=== PATIENT | male | born 1940 | race Caucasian/White ===

== ENCOUNTER 2016-12-24 18:13 | Inpatient (IN) | payer OTHER ==
[~2016-12-24] VITALS: Ht 177.8 cm; Wt 92.0 kg
[~2016-12-24 18:13] MED LIST: ALLOPURINOL100 MG PO; AMARYL4 MG PO; Aggrenox PO; Aleve PO; Aspirin E.C. PO; CARVEDILOL6.25 MG PO; CIPRO500 MG PO; COATED ASPIRIN325 MG PO; CYANOCOBALAM1000 MCG PO; Coreg PO; FEXOFENADINE H180 M1 PO; FLOMAX0.4 MG PO; FLUDROCORTISON0.1 M1 PO; FUROSEMIDE20 MG PO; HYDROCODON-ACE1 EAC9 PO; KDUR; LASIX; LISINOPRIL10 MG PO; LORCET 10-6501 EACH PO; LOVAZA1 GM PO; METFORMIN HCL1000 MG PO; MIRALAX17 GM PO; MOTRIN600 MG PO; MULTIVITAMIN1 EAC2 PO; NEURONTIN800 MG PO; NEXIUM40 MG PO; PRADAXA150 MG PO; PRILOSEC40 MG PO; SIMVASTATIN40 M1 PO; SINGULAIR10 MG PO; TRADJENTA5 MG PO; TRAZODONE HCL50 MG PO; ZESTRIL,PRINIVI10 MG PO; celeXA PO
[2016-12-24 19:03] LABS: EOSINOPHIL (%) 1.1 % (0-5); EOSINOPHIL COUNT 0.1 K/uL (0-0.3); HEMATOCRIT 39.8 % (38.0-50.0); IMMATURE GRANULOCYTE (%) 0.8 % (0.0-0.7); IMMATURE GRANULOCYTE COUNT 0.1 K/uL; INSTRUMENT ABS NEUTROPHIL CT 8.6 K/uL; LYMPHOCYTE COUNT 1.7 K/uL (1.0-2.8); MCH 30.8 PG (29.0-34.0); MCHC 33.7 G/DL (30.0-36.0); MCV 91.5 FL (86-99); MEAN PLAT.VOLUME 10.6 uM^3 (9.0-12.4); MONOCYTE (%) 10.7 % (3-12); MONOCYTE COUNT 1.3 K/uL (0-0.8); NEUTROPHIL (%) 72.7 % (45-76); NEUTROPHIL COUNT 8.6 K/uL (1.8-6.4); PLATELET COUNT 152 K/uL (156-360); RBC DIS.WIDTH-CV 13.2 % (11.8-14.6); RBC DIS.WIDTH-SD 43.7 % (39-53); RED BLOOD COUNT 4.35 M/uL (4.00-5.50); WHITE BLOOD COUNT 11.8 K/uL (4.1-10.2)
[2016-12-24 19:08] LABS: INTER. NORMALIZED RATIO 1.2; PROTHROMBIN TIME 14.1 SEC (10.2-12.9)
[2016-12-24 19:11] LABS: PTT 41.1 SEC (25-37)
[2016-12-24 19:15] LABS: CHLORIDE 106 mEq/L (99-109); POTASSIUM 4.3 mEq/L (3.7-5.4); SODIUM 142 mEq/L (136-147)
[2016-12-24 19:17] LABS: GLUCOSE 187 mg/dL (70-99)
[2016-12-24 19:18] LABS: ANION GAP 10 MEQ/L (2-14)
[2016-12-24 19:21] LABS: GFR ESTIMATE (CALCULATED) 53 mL/min/; UREA NITROGEN (BUN) 25 mg/dL (9-23)
[2016-12-24 19:24] LABS: TROP-I INTERPRETATION NEGATIVE; TROPONIN-I 0.17 ng/mL (0.0-0.30)
[2016-12-24 22:56] LABS: Estimated Average Glucose 235 mg/dL (70-123)
[2016-12-24 22:58] LABS: HEMOGLOBIN A1c (GLYCOHEMOGLOB) 9.8 % HGB (Below 5.7)
[2016-12-24 23:34] VITALS: BP 91/53
[2016-12-25] VITALS (7 sets, daily range): BP systolic 116–177; BP diastolic 53–80
[2016-12-25 03:03] LABS: HEMATOCRIT 35.2 % (38.0-50.0); MCH 31.2 PG (29.0-34.0); MCHC 33.8 G/DL (30.0-36.0); MCV 92.4 FL (86-99); MEAN PLAT.VOLUME 10.7 uM^3 (9.0-12.4); PLATELET COUNT 125 K/uL (156-360); RBC DIS.WIDTH-CV 13.6 % (11.8-14.6); RBC DIS.WIDTH-SD 45.7 % (39-53); RED BLOOD COUNT 3.81 M/uL (4.00-5.50); WHITE BLOOD COUNT 7.7 K/uL (4.1-10.2)
[2016-12-25 03:14] LABS: CHLORIDE 109 mEq/L (99-109); POTASSIUM 3.9 mEq/L (3.7-5.4); SODIUM 140 mEq/L (136-147)
[2016-12-25 03:17] LABS: GLUCOSE 186 mg/dL (70-99)
[2016-12-25 03:18] LABS: ANION GAP 9 MEQ/L (2-14)
[2016-12-25 03:19] LABS: TOTAL BILIRUBIN 0.6 mg/dL (0.0-1.0)
[2016-12-25 03:20] LABS: ALKALINE PHOSPHATASE 51 IU/L (3-129); GFR ESTIMATE (CALCULATED) > 59 mL/min/
[2016-12-25 03:21] LABS: UREA NITROGEN (BUN) 21 mg/dL (9-23)
[2016-12-25 03:25] LABS: TROP-I INTERPRETATION POSITIVE
[2016-12-25 03:27] LABS: TROPONIN-I 1.05 ng/mL (0.0-0.30)
[2016-12-25 07:24] LABS: POINT-OF-CARE METER ID UU13113698; POINT-OF-CARE USER ID NUTSLF44
[2016-12-25 11:05] LABS: TROP-I INTERPRETATION POSITIVE; TROPONIN-I 0.62 ng/mL (0.0-0.30)
[2016-12-25 11:34] LABS: MAGNESIUM 1.4 mg/dL (1.3-2.7)
[2016-12-25 11:45] LABS: POINT-OF-CARE METER ID UU13113698; POINT-OF-CARE USER ID NUTSLF44
[2016-12-25 12:21] LABS: MAGNESIUM 1.4 mg/dl (1.3-2.7)
[2016-12-25] MEDS ORDERED: SIMVASTATIN40 MG PO (13:52)
[2016-12-25] MEDS ORDERED: GABAPENTIN800 MG PO (13:52)
[2016-12-25] MEDS ORDERED: ALLOPURINOL100 MG PO (13:52)
[2016-12-25] MEDS ORDERED: GLIMEPIRIDE4 MG PO (13:52)
[2016-12-25] MEDS ORDERED: SINGULAIR10 MG PO (13:53)
[2016-12-25] MEDS ORDERED: LO-DOSE ASPIRIN81 M1 PO (13:53)
[2016-12-25] MEDS ORDERED: CENTRUM SILVER1 EAC3 PO (13:53)
[2016-12-25] MEDS ORDERED: LOVAZA1 GM PO (13:53)
[2016-12-25] MEDS ORDERED: NEXIUM40 MG PO (13:53)
[2016-12-25] MEDS ORDERED: TAMSULOSIN HCL0.4 MG PO (13:54)
[2016-12-25] MEDS ORDERED: PROVENTIL HFA6.7 GM IH (13:57)
[2016-12-25] MEDS ORDERED: CYANOCOBAL1000 MCG/2 IM (13:58)
[2016-12-25] MEDS ORDERED: NORCO 10/3251 TABLET PO (13:59)
[2016-12-25] MEDS ORDERED: LASIX20 MG PO (13:59)
[2016-12-25] MEDS ORDERED: PRADAXA150 MG PO (13:59)
[2016-12-25] MEDS ORDERED: LOSARTAN POTASS50 MG PO (14:00)
[2016-12-25] MEDS ORDERED: METFORMIN HCL500 MG PO (14:00)
[2016-12-25] MEDS ORDERED: TRADJENTA5 MG PO (14:00)
[2016-12-25] MEDS ORDERED: KENALOG,ARISTOC15 G2 TP (14:01)
[2016-12-25] MEDS ORDERED: MIRALAX17 GM PO (14:01)
[2016-12-25 16:36] LABS: POINT-OF-CARE METER ID UU13113781; POINT-OF-CARE USER ID NUTSLF44
[2016-12-25 21:21] LABS: POINT-OF-CARE METER ID UU13113698
[2016-12-25 22:20] LABS: ADD MIUA? NO; BILIRUBIN NEGATIVE; BLOOD NEGATIVE; COLOR YELLOW ((YELLOW)); GLUCOSE (STRIP) 50; KETONES NEGATIVE; LEUKOCYTES NEGATIVE; NITRITE NEGATIVE; PROTEIN (STRIP) NEGATIVE; SPECIFIC GRAVITY 1.008 (1.000-1.030); UCUL ADDED? NO; UROBILINOGEN 0.2 MG/DL (0.2-1.0)
[2016-12-26 04:10] VITALS: BP 137/57
[2016-12-26 07:26] VITALS: BP 135/56
[2016-12-26 08:23] LABS: POINT-OF-CARE METER ID UU14174216
[2016-12-26 10:45] VITALS: BP 121/56
[2016-12-26 11:54] LABS: POINT-OF-CARE METER ID UU13113698
[2016-12-26] MEDS ORDERED: LOPRESSOR25 MG PO (13:18)
== END 2016-12-26 14:42 | disposition home or self-care (01) | DRG 281 ==
LOC: EME 18:13 → 4EAST 21:18 → EDOF 21:18 → ENRESERV 21:25 → 4EAST 23:16
PROVIDERS: Emergency Medicine; Internal Medicine
DX: I21.4 Non-ST elevation (NSTEMI) myocardial infarction (principal); I48.92 Unspecified atrial flutter; N17.9 Acute kidney failure, unspecified; I69.359 Hemiplegia and hemiparesis following cerebral infarction affecting unspecified side; I13.0 Hypertensive heart and chronic kidney disease with heart failure and stage 1 through stage 4 chronic kidney disease, or unspecified chronic kidney disease; I50.32 Chronic diastolic (congestive) heart failure; I48.0 Paroxysmal atrial fibrillation; N18.9 Chronic kidney disease, unspecified; J45.909 Unspecified asthma, uncomplicated; N40.0 Benign prostatic hyperplasia without lower urinary tract symptoms; K52.9 Noninfective gastroenteritis and colitis, unspecified; G89.29 Other chronic pain; F31.9 Bipolar disorder, unspecified; E78.00 Pure hypercholesterolemia, unspecified; E11.22 Type 2 diabetes mellitus with diabetic chronic kidney disease; Z87.891 Personal history of nicotine dependence; Z79.01 Long term (current) use of anticoagulants; Z60.2 Problems related to living alone; Z91.013 Allergy to seafood; Z91.041 Radiographic dye allergy status; Z79.84 Long term (current) use of oral hypoglycemic drugs; Z79.51 Long term (current) use of inhaled steroids; Z79.82 Long term (current) use of aspirin
CPT/HCPCS: 70450; 71010; 80048; 80053; 81003; 82948; 83036; 83735; 84100; 84484; 85025; 85027; 85610; 85730; 90686; 93005; 99281; 99285; J1815; J2405; J7030; S0028

== ENCOUNTER 2017-03-31 05:54 | Inpatient (IN) | payer OTHER ==
[~2017-03-31] VITALS: Ht 177.8 cm; Wt 93.9 kg
[~2017-03-31 05:54] MED LIST changes: +CENTRUM SILVER1 EAC3 PO; +CYANOCOBAL1000 MCG/2 IM; +GABAPENTIN800 MG PO; +GLIMEPIRIDE4 MG PO; +KENALOG,ARISTOC15 G2 TP; +LASIX20 MG PO; +LO-DOSE ASPIRIN81 M1 PO; +LOPRESSOR25 MG PO; +LOSARTAN POTASS50 MG PO; +METFORMIN HCL500 MG PO; +NORCO 10/3251 TABLET PO; +PROVENTIL HFA6.7 GM IH; +SIMVASTATIN40 MG PO; +TAMSULOSIN HCL0.4 MG PO
[2017-03-31 06:39] LABS: BASOPHIL (%) 0.2 % (0-1); EOSINOPHIL COUNT 0.1 K/uL (0-0.3); HEMATOCRIT 40.5 % (38.0-50.0); HEMOGLOBIN 13.7 G/DL (12.5-16.6); IMMATURE GRANULOCYTE (%) 0.2 % (0.0-0.7); LYMPHOCYTE (%) 8.1 % (15-42); LYMPHOCYTE COUNT 0.4 K/uL (1.0-2.8); MCHC 33.8 G/DL (30.0-36.0); MCV 91.6 FL (86-99); MONOCYTE (%) 6.6 % (3-12); MONOCYTE COUNT 0.3 K/uL (0-0.8); NEUTROPHIL (%) 83.9 % (45-76); NEUTROPHIL COUNT 4.1 K/uL (1.8-6.4); PLATELET COUNT 114 K/uL (156-360); RBC DIS.WIDTH-CV 12.4 % (11.8-14.6); RBC DIS.WIDTH-SD 41.5 % (39-53); RED BLOOD COUNT 4.42 M/uL (4.00-5.50); WHITE BLOOD COUNT 4.8 K/uL (4.1-10.2)
[2017-03-31 06:49] LABS: CHLORIDE 97 mEq/L (99-109); POTASSIUM 4.5 mEq/L (3.7-5.4); SODIUM 134 mEq/L (136-147)
[2017-03-31 06:51] LABS: GLUCOSE 340 mg/dL (70-99)
[2017-03-31 06:55] LABS: CREATININE 1.8 mg/dL (0.6-1.3); GFR ESTIMATE (CALCULATED) 39 mL/min/ (58.99-99999)
[2017-03-31 06:56] LABS: UREA NITROGEN (BUN) 23 mg/dL (9-23)
[2017-03-31 07:40] LABS: APPEARANCE CLEAR ((CLEAR)); BILIRUBIN NEGATIVE; BLOOD NEGATIVE; COLOR YELLOW ((YELLOW)); GLUCOSE (STRIP) 150; KETONES NEGATIVE; LEUKOCYTES NEGATIVE; NITRITE NEGATIVE; PROTEIN (STRIP) NEGATIVE; SPECIFIC GRAVITY 1.017 (1.000-1.030); UCUL ADDED? NO; UROBILINOGEN 0.2 MG/DL (0.2-1.0)
[2017-03-31 10:10] LABS: TROP-I INTERPRETATION NEGATIVE; TROPONIN-I 0.04 ng/mL (0.0-0.30)
[2017-03-31 11:06] LABS: BENZODIAZEPINES, URINE SCREEN Negative (200 ng/mL)
[2017-03-31] MEDS ORDERED: TRAZODONE HCL50 MG PO (12:41)
[2017-03-31] MEDS ORDERED: TRADJENTA5 MG PO (12:41)
[2017-03-31 14:08] LABS: HEMOGLOBIN A1c (GLYCOHEMOGLOB) 9.1 % (Below 5.7)
[2017-03-31 16:15] LABS: TROP-I INTERPRETATION NEGATIVE; TROPONIN-I 0.03 ng/mL (0.0-0.30)
[2017-03-31 20:27] VITALS: BP 110/59
[2017-04-01 00:04] VITALS: BP 143/65
[2017-04-01 04:14] VITALS: BP 117/63
[2017-04-01 05:47] LABS: HEMATOCRIT 33.3 % (38.0-50.0); MCH 29.7 PG (29.0-34.0); MCHC 32.1 G/DL (30.0-36.0); MCV 92.5 FL (86-99); PLATELET COUNT 83 K/uL (156-360); RBC DIS.WIDTH-CV 12.6 % (11.8-14.6); RBC DIS.WIDTH-SD 43.1 % (39-53); WHITE BLOOD COUNT 5.7 K/uL (4.1-10.2)
[2017-04-01 05:49] LABS: HEMOGLOBIN 10.7 G/DL (12.5-16.6)
[2017-04-01 06:05] LABS: CHLORIDE 109 MEQ/L (99-109); GFR ESTIMATE (CALCULATED) > 59 mL/min/ (58.99-99999); GLUCOSE 219 mg/dL (70-99); POTASSIUM 4.8 MEQ/L (3.7-5.4); SODIUM 139 MEQ/L (136-147); UREA NITROGEN (BUN) 20 mg/dL (9-23)
[2017-04-01 08:00] VITALS: BP 126/55
[2017-04-01 11:10] VITALS: BP 140/61
[2017-04-01 15:30] VITALS: BP 114/56
[2017-04-01 15:39] LABS: ALBUMIN 2.7 G/DL (3.2-4.8); DIRECT BILIRUBIN 0.2 mg/dL (0.0-0.3)
[2017-04-01 15:45] LABS: ALKALINE PHOSPHATASE 68 IU/L (3-129); ALT (GPT) 13 IU/L (3-49); AST (GOT) 18 IU/L (2-34); TOTAL PROTEIN 4.9 G/DL (6.4-8.3)
[2017-04-01 20:00] VITALS: BP 149/66
[2017-04-02 00:18] VITALS: BP 145/65
[2017-04-02 04:18] VITALS: BP 136/66
[2017-04-02 06:02] LABS: CHLORIDE 105 MEQ/L (99-109); CREATININE 0.9 MG/DL (0.6-1.3); GFR ESTIMATE (CALCULATED) > 59 mL/min/ (58.99-99999); GLUCOSE 177 mg/dL (70-99); POTASSIUM 4.4 MEQ/L (3.7-5.4); SODIUM 136 MEQ/L (136-147); UREA NITROGEN (BUN) 13 mg/dL (9-23)
[2017-04-02 06:03] LABS: BASOPHIL (%) 0.2 % (0-1); EOSINOPHIL (%) 1.8 % (0-5); EOSINOPHIL COUNT 0.1 K/uL (0-0.3); HEMATOCRIT 31.2 % (38.0-50.0); HEMOGLOBIN 10.5 G/DL (12.5-16.6); IMMATURE GRANULOCYTE (%) 0.9 % (0.0-0.7); LYMPHOCYTE COUNT 0.9 K/uL (1.0-2.8); MCH 31.3 PG (29.0-34.0); MCHC 33.7 G/DL (30.0-36.0); MCV 92.9 FL (86-99); MONOCYTE (%) 12.5 % (3-12); MONOCYTE COUNT 0.8 K/uL (0-0.8); NEUTROPHIL (%) 70.6 % (45-76); NEUTROPHIL COUNT 4.7 K/uL (1.8-6.4); PLATELET COUNT 92 K/uL (156-360); RBC DIS.WIDTH-CV 12.6 % (11.8-14.6); RBC DIS.WIDTH-SD 42.7 % (39-53); RED BLOOD COUNT 3.36 M/uL (4.00-5.50); WHITE BLOOD COUNT 6.6 K/uL (4.1-10.2)
[2017-04-02 07:59] VITALS: BP 183/78
[2017-04-02 16:00] VITALS: BP 137/61
[2017-04-03] VITALS: BP 151/64
[2017-04-03 06:52] LABS: BASOPHIL (%) 0.3 % (0-1); EOSINOPHIL (%) 3.8 % (0-5); EOSINOPHIL COUNT 0.2 K/uL (0-0.3); HEMATOCRIT 35.8 % (38.0-50.0); HEMOGLOBIN 11.4 G/DL (12.5-16.6); IMMATURE GRANULOCYTE (%) 1.2 % (0.0-0.7); LYMPHOCYTE (%) 15.3 % (15-42); LYMPHOCYTE COUNT 0.9 K/uL (1.0-2.8); MCH 29.8 PG (29.0-34.0); MCHC 31.8 G/DL (30.0-36.0); MCV 93.7 FL (86-99); MONOCYTE (%) 12.1 % (3-12); MONOCYTE COUNT 0.7 K/uL (0-0.8); NEUTROPHIL (%) 67.3 % (45-76); NEUTROPHIL COUNT 3.9 K/uL (1.8-6.4); PLATELET COUNT 119 K/uL (156-360); RBC DIS.WIDTH-CV 12.5 % (11.8-14.6); RBC DIS.WIDTH-SD 42.9 % (39-53); RED BLOOD COUNT 3.82 M/uL (4.00-5.50); WHITE BLOOD COUNT 5.8 K/uL (4.1-10.2)
[2017-04-03 07:16] LABS: CHLORIDE 104 MEQ/L (99-109); CREATININE 1.1 MG/DL (0.6-1.3); GFR ESTIMATE (CALCULATED) > 59 mL/min/ (58.99-99999); GLUCOSE 189 mg/dL (70-99); POTASSIUM 4.4 MEQ/L (3.7-5.4); SODIUM 138 MEQ/L (136-147); UREA NITROGEN (BUN) 13 mg/dL (9-23)
[2017-04-03 07:45] VITALS: BP 138/67
[2017-04-03 12:03] VITALS: BP 124/58
[2017-04-03 16:00] VITALS: BP 148/71
[2017-04-03 16:09] LABS: CK-MB 0.5 ng/mL (0.0-4.9)
[2017-04-03 16:21] LABS: CKMB RELATIVE INDEX 1.1 (0.0-3.9); CREATINE KINASE 44 IU/L (1-294); TOTAL CK 44 IU/L (1-294)
[2017-04-04 07:08] LABS: BASOPHIL (%) 0.5 % (0-1); EOSINOPHIL (%) 4.9 % (0-5); EOSINOPHIL COUNT 0.3 K/uL (0-0.3); HEMATOCRIT 32.5 % (38.0-50.0); HEMOGLOBIN 10.5 G/DL (12.5-16.6); IMMATURE GRANULOCYTE (%) 1.2 % (0.0-0.7); LYMPHOCYTE (%) 16.2 % (15-42); LYMPHOCYTE COUNT 0.9 K/uL (1.0-2.8); MCH 30.2 PG (29.0-34.0); MCHC 32.3 G/DL (30.0-36.0); MCV 93.4 FL (86-99); MONOCYTE (%) 16.7 % (3-12); NEUTROPHIL (%) 60.5 % (45-76); NEUTROPHIL COUNT 3.5 K/uL (1.8-6.4); PLATELET COUNT 113 K/uL (156-360); RBC DIS.WIDTH-CV 12.6 % (11.8-14.6); RBC DIS.WIDTH-SD 43.3 % (39-53); RED BLOOD COUNT 3.48 M/uL (4.00-5.50); WHITE BLOOD COUNT 5.8 K/uL (4.1-10.2)
[2017-04-04 07:36] LABS: CHLORIDE 104 MEQ/L (99-109); GFR ESTIMATE (CALCULATED) > 59 mL/min/ (58.99-99999); GLUCOSE 247 mg/dL (70-99); POTASSIUM 4.3 MEQ/L (3.7-5.4); SODIUM 139 MEQ/L (136-147); UREA NITROGEN (BUN) 13 mg/dL (9-23)
[2017-04-04 07:46] VITALS: BP 157/68
[2017-04-04 15:45] VITALS: BP 136/62
[2017-04-04 23:18] VITALS: BP 153/67
[2017-04-05 08:02] VITALS: BP 146/68
[2017-04-05 16:34] VITALS: BP 151/67
[2017-04-05 19:55] LABS: BASOPHIL (%) 0.6 % (0-1); EOSINOPHIL (%) 5.5 % (0-5); EOSINOPHIL COUNT 0.4 K/uL (0-0.3); HEMATOCRIT 33.8 % (38.0-50.0); HEMOGLOBIN 11.1 G/DL (12.5-16.6); IMMATURE GRANULOCYTE (%) 1.4 % (0.0-0.7); LYMPHOCYTE (%) 11.8 % (15-42); LYMPHOCYTE COUNT 0.8 K/uL (1.0-2.8); MCH 30.6 PG (29.0-34.0); MCHC 32.8 G/DL (30.0-36.0); MCV 93.1 FL (86-99); MONOCYTE (%) 10.2 % (3-12); MONOCYTE COUNT 0.7 K/uL (0-0.8); NEUTROPHIL (%) 70.5 % (45-76); NEUTROPHIL COUNT 4.5 K/uL (1.8-6.4); RBC DIS.WIDTH-CV 12.6 % (11.8-14.6); RED BLOOD COUNT 3.63 M/uL (4.00-5.50); WHITE BLOOD COUNT 6.4 K/uL (4.1-10.2)
[2017-04-05 20:17] LABS: CHLORIDE 102 MEQ/L (99-109); GFR ESTIMATE (CALCULATED) > 59 mL/min/ (58.99-99999); GLUCOSE 281 mg/dL (70-99); POTASSIUM 3.9 MEQ/L (3.7-5.4); SODIUM 134 MEQ/L (136-147); UREA NITROGEN (BUN) 13 mg/dL (9-23)
[2017-04-05 21:01] LABS: PLATELET COUNT 177 K/uL (156-360)
[2017-04-05 23:20] VITALS: BP 161/20; BP 161/70
[2017-04-06 06:47] LABS: BASOPHIL (%) 0.7 % (0-1); EOSINOPHIL (%) 7.1 % (0-5); EOSINOPHIL COUNT 0.4 K/uL (0-0.3); HEMOGLOBIN 9.7 G/DL (12.5-16.6); IMMATURE GRANULOCYTE (%) 1.3 % (0.0-0.7); LYMPHOCYTE (%) 18.9 % (15-42); MCH 29.9 PG (29.0-34.0); MCHC 32.3 G/DL (30.0-36.0); MCV 92.6 FL (86-99); MONOCYTE (%) 13.9 % (3-12); MONOCYTE COUNT 0.8 K/uL (0-0.8); NEUTROPHIL (%) 58.1 % (45-76); NEUTROPHIL COUNT 3.2 K/uL (1.8-6.4); PLATELET COUNT 175 K/uL (156-360); RBC DIS.WIDTH-CV 12.7 % (11.8-14.6); RBC DIS.WIDTH-SD 43.2 % (39-53); RED BLOOD COUNT 3.24 M/uL (4.00-5.50); WHITE BLOOD COUNT 5.5 K/uL (4.1-10.2)
[2017-04-06 07:04] LABS: CHLORIDE 106 MEQ/L (99-109); CREATININE 0.9 MG/DL (0.6-1.3); GFR ESTIMATE (CALCULATED) > 59 mL/min/ (58.99-99999); GLUCOSE 248 mg/dL (70-99); SODIUM 140 MEQ/L (136-147); UREA NITROGEN (BUN) 10 mg/dL (9-23)
[2017-04-06 08:01] VITALS: BP 150/70
[2017-04-06 10:56] LABS: ALBUMIN 2.7 G/DL (3.2-4.8); ALKALINE PHOSPHATASE 100 IU/L (3-129); ALT (GPT) 17 IU/L (3-49); AST (GOT) 16 IU/L (2-34); DIRECT BILIRUBIN 0.2 mg/dL (0.0-0.3); TOTAL BILIRUBIN 0.5 MG/DL (0.0-1.0); TOTAL PROTEIN 5.1 G/DL (6.4-8.3)
[2017-04-06 16:58] VITALS: BP 149/71
[2017-04-06 19:10] LABS: ALBUMIN 3.1 G/DL (3.2-4.8); ALKALINE PHOSPHATASE 110 IU/L (3-129); ALT (GPT) 18 IU/L (3-49); AST (GOT) 19 IU/L (2-34); CHLORIDE 105 MEQ/L (99-109); CREATININE 0.9 MG/DL (0.6-1.3); GFR ESTIMATE (CALCULATED) > 59 mL/min/ (58.99-99999); GLUCOSE 194 mg/dL (70-99); POTASSIUM 3.9 MEQ/L (3.7-5.4); SODIUM 136 MEQ/L (136-147); TOTAL BILIRUBIN 0.5 MG/DL (0.0-1.0); UREA NITROGEN (BUN) 10 mg/dL (9-23)
[2017-04-06 19:11] LABS: TOTAL PROTEIN 6.2 G/DL (6.4-8.3)
[2017-04-07] VITALS: BP 135/66
[2017-04-07 06:14] LABS: BASOPHIL (%) 0.5 % (0-1); EOSINOPHIL (%) 5.1 % (0-5); EOSINOPHIL COUNT 0.3 K/uL (0-0.3); HEMATOCRIT 30.6 % (38.0-50.0); IMMATURE GRANULOCYTE (%) 0.6 % (0.0-0.7); LYMPHOCYTE (%) 16.7 % (15-42); LYMPHOCYTE COUNT 1.1 K/uL (1.0-2.8); MCH 30.3 PG (29.0-34.0); MCHC 32.7 G/DL (30.0-36.0); MCV 92.7 FL (86-99); MONOCYTE (%) 9.2 % (3-12); MONOCYTE COUNT 0.6 K/uL (0-0.8); NEUTROPHIL (%) 67.9 % (45-76); NEUTROPHIL COUNT 4.5 K/uL (1.8-6.4); PLATELET COUNT 186 K/uL (156-360); RBC DIS.WIDTH-CV 12.7 % (11.8-14.6); RBC DIS.WIDTH-SD 43.1 % (39-53); WHITE BLOOD COUNT 6.6 K/uL (4.1-10.2)
[2017-04-07 06:36] LABS: IRON 49 MCG/DL (35-150); TRANSFERRIN (TIBC) 206.3 mg/dL (215-380); TRANSFERRIN SATUR. 24 % (20-55)
[2017-04-07 06:41] LABS: INTER. NORMALIZED RATIO 1.3
[2017-04-07 06:42] LABS: ALBUMIN 2.8 G/DL (3.2-4.8); ALKALINE PHOSPHATASE 91 IU/L (3-129); ALT (GPT) 16 IU/L (3-49); AST (GOT) 15 IU/L (2-34); CHLORIDE 106 MEQ/L (99-109); CREATININE 0.9 MG/DL (0.6-1.3); GFR ESTIMATE (CALCULATED) > 59 mL/min/ (58.99-99999); GLUCOSE 170 mg/dL (70-99); POTASSIUM 4.1 MEQ/L (3.7-5.4); SODIUM 141 MEQ/L (136-147); TOTAL BILIRUBIN 0.4 MG/DL (0.0-1.0); TOTAL PROTEIN 5.7 G/DL (6.4-8.3); UREA NITROGEN (BUN) 8 mg/dL (9-23)
[2017-04-07 07:56] VITALS: BP 143/66
[2017-04-07 10:59] LABS: HEPATITIS B SURFACE ANTIGEN Nonreactive; HEPATITIS C ANTIBODY Nonreactive
[2017-04-07 11:00] LABS: ANTI-HEPATITIS A VIRUS (IGM) Nonreactive
[2017-04-07 11:01] LABS: ANTI-HEPATITIS B CORE (IGM) Nonreactive
[2017-04-07 16:25] VITALS: BP 125/54
[2017-04-07 23:57] VITALS: BP 149/70
[2017-04-08 06:49] LABS: BASOPHIL (%) 0.5 % (0-1); EOSINOPHIL (%) 3.9 % (0-5); EOSINOPHIL COUNT 0.3 K/uL (0-0.3); HEMATOCRIT 32.4 % (38.0-50.0); HEMOGLOBIN 10.6 G/DL (12.5-16.6); IMMATURE GRANULOCYTE (%) 0.7 % (0.0-0.7); LYMPHOCYTE (%) 15.4 % (15-42); LYMPHOCYTE COUNT 1.4 K/uL (1.0-2.8); MCH 30.6 PG (29.0-34.0); MCHC 32.7 G/DL (30.0-36.0); MCV 93.6 FL (86-99); MONOCYTE (%) 6.5 % (3-12); MONOCYTE COUNT 0.6 K/uL (0-0.8); NEUTROPHIL COUNT 6.4 K/uL (1.8-6.4); PLATELET COUNT 205 K/uL (156-360); RBC DIS.WIDTH-SD 44.4 % (39-53); RED BLOOD COUNT 3.46 M/uL (4.00-5.50); WHITE BLOOD COUNT 8.8 K/uL (4.1-10.2)
[2017-04-08 07:15] LABS: ALBUMIN 2.9 G/DL (3.2-4.8); ALKALINE PHOSPHATASE 97 IU/L (3-129); ALT (GPT) 15 IU/L (3-49); AST (GOT) 14 IU/L (2-34); CHLORIDE 109 MEQ/L (99-109); CREATININE 0.9 MG/DL (0.6-1.3); GFR ESTIMATE (CALCULATED) > 59 mL/min/ (58.99-99999); GLUCOSE 143 mg/dL (70-99); POTASSIUM 4.6 MEQ/L (3.7-5.4); SODIUM 140 MEQ/L (136-147); TOTAL BILIRUBIN 0.5 MG/DL (0.0-1.0); TOTAL PROTEIN 5.3 G/DL (6.4-8.3); UREA NITROGEN (BUN) 8 mg/dL (9-23)
[2017-04-08 07:58] VITALS: BP 136/78
[2017-04-08 16:12] VITALS: BP 142/67
[2017-04-08 23:40] VITALS: BP 148/65
[2017-04-09 08:20] VITALS: BP 144/73
[2017-04-09] MEDS ORDERED: DUONEB 2.5-0.5 M3 ML AEROSOL (14:36)
[2017-04-09] MEDS ORDERED: PRADAXA150 MG PO (14:36)
[2017-04-09] MEDS ORDERED: LOPRESSOR25 MG PO (14:37)
[2017-04-09] MEDS ORDERED: NORVASC5 MG PO (14:43)
[2017-04-09] MEDS ORDERED: LEVEMIR100 UNIT/2 SC ×2 (14:44)
[2017-04-09 15:35] VITALS: BP 131/63
[2017-04-10] VITALS: BP 150/70
[2017-04-10 08:30] VITALS: BP 116/67
[2017-04-10 15:05] VITALS: BP 136/74
[2017-04-11 00:08] VITALS: BP 141/68
[2017-04-11 07:48] VITALS: BP 144/69
[2017-04-11] MEDS ORDERED: NORCO 10/3251 TABLET PO (12:34)
[2017-04-11] MEDS ORDERED: FLONASE16 G1 BOTH NARES (12:34)
[2017-04-11] MEDS ORDERED: BENZONATATE100 MG PO (12:34)
== END 2017-04-11 13:40 | DRG 871 ==
LOC: EME 05:54 → EDOF 08:59 → 5SOUTH 08:59 → ENRESERV 09:02 → 5SOUTH 19:39 → CANRESERV 04-01 09:30 → ENRESERV 04-01 09:30 → 5SOUTH 04-01 09:44 → ENPENDDIS 04-11 12:38 → 5SOUTH 04-11 13:40
PROVIDERS: Emergency Medicine; Internal Medicine; Specialist
DX: A41.9 Sepsis, unspecified organism (principal); J69.0 Pneumonitis due to inhalation of food and vomit; N17.9 Acute kidney failure, unspecified; G93.40 Encephalopathy, unspecified; F03.90 Unspecified dementia, unspecified severity, without behavioral disturbance, psychotic disturbance, mood disturbance, and anxiety; F05 Delirium due to known physiological condition; A08.4 Viral intestinal infection, unspecified; E72.20 Disorder of urea cycle metabolism, unspecified; I48.0 Paroxysmal atrial fibrillation; D69.6 Thrombocytopenia, unspecified; E11.65 Type 2 diabetes mellitus with hyperglycemia; J43.9 Emphysema, unspecified; I69.351 Hemiplegia and hemiparesis following cerebral infarction affecting right dominant side; J20.9 Acute bronchitis, unspecified; R09.02 Hypoxemia; I25.10 Atherosclerotic heart disease of native coronary artery without angina pectoris; I10 Essential (primary) hypertension; E78.5 Hyperlipidemia, unspecified; N40.0 Benign prostatic hyperplasia without lower urinary tract symptoms; G89.29 Other chronic pain; M54.5 Low back pain; K21.9 Gastro-esophageal reflux disease without esophagitis; I25.2 Old myocardial infarction; K59.00 Constipation, unspecified; Z79.01 Long term (current) use of anticoagulants; Z87.442 Personal history of urinary calculi; Z87.891 Personal history of nicotine dependence; Z79.82 Long term (current) use of aspirin; Z79.84 Long term (current) use of oral hypoglycemic drugs; Z82.3 Family history of stroke
CPT/HCPCS: 70450; 70551; 71045; 71046; 73502; 74018; 74176; 74230; 76705; 80048; 80053; 80074; 80076; 80306 90; 81003; 82140; 82550; 82553; 82607; 82746; 82948; 83036; 83540; 83605; 83880; 84443; 84466; 84484; 85025; 85027; 85610; 87040; 87502; 92526 GN; 92610 GN; 92611 GN; 93005; 94640; 94640 76; 94799; 95819; 97530 GO; 97530 GP; 99202; 99281; 99285; J1650; J1815; J2405; J2543; J2765; J3370; J7030; J7040; J7050; J7120

== ENCOUNTER 2017-04-28 15:51 | Inpatient (IN) | payer OTHER ==
[~2017-04-28] VITALS: Ht 177.8 cm; Wt 103.0 kg
[~2017-04-28 15:51] MED LIST changes: +BENZONATATE100 MG PO; +DUONEB 2.5-0.5 M3 ML AEROSOL; +FLONASE16 G1 BOTH NARES; +LEVEMIR100 UNIT/2 SC; +NORVASC5 MG PO
[2017-04-28 17:08] LABS: HEMATOCRIT 37.6 % (38.0-50.0); HEMOGLOBIN 12.2 G/DL (12.5-16.6); MCH 30.3 PG (29.0-34.0); MCHC 32.4 G/DL (30.0-36.0); MCV 93.5 FL (86-99); RBC DIS.WIDTH-CV 13.1 % (11.8-14.6); RED BLOOD COUNT 4.02 M/uL (4.00-5.50); WHITE BLOOD COUNT 12.7 K/uL (4.1-10.2)
[2017-04-28 17:14] LABS: ALBUMIN 3.6 g/dL (3.2-4.8)
[2017-04-28 17:15] LABS: CHLORIDE 103 mEq/L (99-109); POTASSIUM 4.9 mEq/L (3.7-5.4); SODIUM 140 mEq/L (136-147)
[2017-04-28 17:17] LABS: GLUCOSE 332 mg/dL (70-99); TOTAL PROTEIN 6.7 g/dL (6.4-8.3)
[2017-04-28 17:19] LABS: TOTAL BILIRUBIN 0.7 mg/dL (0.0-1.0)
[2017-04-28 17:20] LABS: ALKALINE PHOSPHATASE 81 IU/L (3-129)
[2017-04-28 17:21] LABS: CREATININE 1.9 mg/dL (0.6-1.3); GFR ESTIMATE (CALCULATED) 37 mL/min/ (58.99-99999)
[2017-04-28 17:22] LABS: AST (GOT) 21 IU/L (2-34); UREA NITROGEN (BUN) 29 mg/dL (9-23)
[2017-04-28 17:23] LABS: ALT (GPT) 16 IU/L (3-49)
[2017-04-28 17:27] LABS: TROP-I INTERPRETATION NEGATIVE; TROPONIN-I 0.02 ng/mL (0.0-0.30)
[2017-04-28 17:47] LABS: BASOPHIL (%) 0.3 % (0-1); EOSINOPHIL (%) 0.3 % (0-5); IMMATURE GRANULOCYTE (%) 0.7 % (0.0-0.7); LYMPHOCYTE (%) 7.5 % (15-42); MONOCYTE (%) 7.9 % (3-12); NEUTROPHIL (%) 83.3 % (45-76); NEUTROPHIL COUNT 10.6 K/uL (1.8-6.4); PLAT.SUFFICIENCY DECREASED; PLATELET COUNT 131 K/uL (156-360)
[2017-04-28] MEDS ORDERED: NEURONTIN600 MG PO (18:35)
[2017-04-28] MEDS ORDERED: PRADAXA150 MG PO (18:42)
[2017-04-28] MEDS ORDERED: LOPRESSOR25 MG PO (18:43)
[2017-04-28] MEDS ORDERED: OXYCONTIN10 MG PO (18:44)
[2017-04-28] MEDS ORDERED: OXYCODONE HCL5 MG PO (18:44)
[2017-04-28] MEDS ORDERED: CENTRUM SILVER1 EAC5 PO (18:46)
[2017-04-28 22:11] VITALS: BP 104/59
[2017-04-28 23:35] VITALS: BP 127/57
[2017-04-29] VITALS (7 sets, daily range): BP systolic 102–134; BP diastolic 49–68
[2017-04-29 00:08] LABS: TROP-I INTERPRETATION NEGATIVE; TROPONIN-I 0.02 ng/mL (0.0-0.30)
[2017-04-29 06:06] LABS: HEMATOCRIT 29.1 % (38.0-50.0); MCH 30.1 PG (29.0-34.0); MCV 94.2 FL (86-99); PLATELET COUNT 103 K/uL (156-360); RBC DIS.WIDTH-CV 13.2 % (11.8-14.6); RBC DIS.WIDTH-SD 45.6 % (39-53)
[2017-04-29 06:19] LABS: TROP-I INTERPRETATION NEGATIVE; TROPONIN-I 0.01 ng/mL (0.0-0.30)
[2017-04-29 06:30] LABS: HEMOGLOBIN 9.3 G/DL (12.5-16.6); RED BLOOD COUNT 3.09 M/uL (4.00-5.50)
[2017-04-29 07:54] LABS: CHLORIDE 109 MEQ/L (99-109); GLUCOSE 172 mg/dL (70-99); POTASSIUM 4.4 MEQ/L (3.7-5.4); SODIUM 140 MEQ/L (136-147); UREA NITROGEN (BUN) 28 mg/dL (9-23)
[2017-04-29 07:58] LABS: CREATININE 1.3 MG/DL (0.6-1.3); GFR ESTIMATE (CALCULATED) 57 mL/min/ (58.99-99999)
[2017-04-29 12:29] LABS: HDL CHOLESTEROL 25 MG/DL (Desirable>=40); LDL CHOLESTEROL 50 mg/dL (Desirable<100); NON-HDL CHOLESTEROL 69 mg/dL (Desirable<160); TOTAL CHOLESTEROL 94 mg/dL (Desirable<200); TRIGLYCERIDES 97 MG/DL (Normal: <150)
[2017-04-29 13:06] LABS: HEMOGLOBIN A1c (GLYCOHEMOGLOB) 7.7 % (Below 5.7)
[2017-04-29 13:22] LABS: APPEARANCE SL.HAZY ((CLEAR)); BILIRUBIN NEGATIVE; BLOOD NEGATIVE; COLOR YELLOW ((YELLOW)); GLUCOSE (STRIP) NEGATIVE; KETONES NEGATIVE; LEUKOCYTES TRACE; NITRITE NEGATIVE; PROTEIN (STRIP) NEGATIVE; SPECIFIC GRAVITY 1.021 (1.000-1.030); UROBILINOGEN 0.2 MG/DL (0.2-1.0)
[2017-04-29 13:41] LABS: BACTERIA NONE SEEN /HPF; EPITHELIAL CELLS RARE /HPF; MUCUS TRACE /LPF; RED BLOOD CELLS 0-5 /HPF (0-5); UCUL ADDED? YES
[2017-04-30 03:56] VITALS: BP 128/60
[2017-04-30 12:55] VITALS: BP 157/70
[2017-04-30 13:55] LABS: BASOPHIL (%) 0 % (0-1); EOSINOPHIL (%) 0 % (0-5); HEMATOCRIT 33.5 % (38.0-50.0); HEMOGLOBIN 10.9 G/DL (12.5-16.6); IMMATURE GRANULOCYTE (%) 0.4 % (0.0-0.7); LYMPHOCYTE (%) 10.9 % (15-42); LYMPHOCYTE COUNT 0.5 K/uL (1.0-2.8); MCH 29.9 PG (29.0-34.0); MCHC 32.5 G/DL (30.0-36.0); MCV 91.8 FL (86-99); MONOCYTE (%) 4.2 % (3-12); MONOCYTE COUNT 0.2 K/uL (0-0.8); NEUTROPHIL (%) 84.5 % (45-76); NEUTROPHIL COUNT 3.9 K/uL (1.8-6.4); PLATELET COUNT 96 K/uL (156-360); RBC DIS.WIDTH-CV 12.5 % (11.8-14.6); RBC DIS.WIDTH-SD 42.5 % (39-53); RED BLOOD COUNT 3.65 M/uL (4.00-5.50); WHITE BLOOD COUNT 4.6 K/uL (4.1-10.2)
[2017-04-30 14:45] LABS: ALBUMIN 3.2 G/DL (3.2-4.8); ALKALINE PHOSPHATASE 58 IU/L (3-129); ALT (GPT) 14 IU/L (3-49); AST (GOT) 23 IU/L (2-34); CHLORIDE 107 MEQ/L (99-109); CREATININE 0.9 MG/DL (0.6-1.3); GFR ESTIMATE (CALCULATED) > 59 mL/min/ (58.99-99999); SODIUM 137 MEQ/L (136-147); TOTAL BILIRUBIN 0.6 MG/DL (0.0-1.0); TOTAL PROTEIN 5.6 G/DL (6.4-8.3); UREA NITROGEN (BUN) 21 mg/dL (9-23)
[2017-04-30 14:47] LABS: GLUCOSE 338 mg/dL (70-99); POTASSIUM 5.6 MEQ/L (3.7-5.4)
[2017-04-30 15:06] VITALS: BP 141/65
[2017-05-01 00:30] VITALS: BP 111/58
[2017-05-01 07:56] VITALS: BP 168/73
[2017-05-01 15:20] VITALS: BP 161/72
[2017-05-02] VITALS: BP 175/81
[2017-05-02 01:01] VITALS: BP 156/64
[2017-05-02 07:36] VITALS: BP 174/90
[2017-05-02 08:32] LABS: BASOPHIL (%) 0 % (0-1); EOSINOPHIL (%) 0 % (0-5); HEMATOCRIT 31.5 % (38.0-50.0); HEMOGLOBIN 10.4 G/DL (12.5-16.6); LYMPHOCYTE (%) 18.2 % (15-42); LYMPHOCYTE COUNT 0.8 K/uL (1.0-2.8); MCH 30.1 PG (29.0-34.0); MCV 91.3 FL (86-99); MONOCYTE (%) 7.8 % (3-12); MONOCYTE COUNT 0.3 K/uL (0-0.8); PLATELET COUNT 113 K/uL (156-360); RBC DIS.WIDTH-CV 12.7 % (11.8-14.6); RED BLOOD COUNT 3.45 M/uL (4.00-5.50); WHITE BLOOD COUNT 4.1 K/uL (4.1-10.2)
[2017-05-02 09:03] LABS: ALBUMIN 2.7 G/DL (3.2-4.8); ALKALINE PHOSPHATASE 43 IU/L (3-129); ALT (GPT) 11 IU/L (3-49); CHLORIDE 106 MEQ/L (99-109); CREATININE 0.9 MG/DL (0.6-1.3); GFR ESTIMATE (CALCULATED) > 59 mL/min/ (58.99-99999); GLUCOSE 264 mg/dL (70-99); POTASSIUM 4.8 MEQ/L (3.7-5.4); SODIUM 137 MEQ/L (136-147); TOTAL PROTEIN 5.2 G/DL (6.4-8.3); UREA NITROGEN (BUN) 20 mg/dL (9-23)
[2017-05-02 09:04] LABS: AST (GOT) 12 IU/L (2-34); TOTAL BILIRUBIN 0.4 MG/DL (0.0-1.0)
[2017-05-02 16:18] VITALS: BP 142/76
[2017-05-02 16:26] VITALS: BP 136/78
[2017-05-03] VITALS: BP 164/72
[2017-05-03 07:06] LABS: BASOPHIL (%) 0 % (0-1); EOSINOPHIL (%) 0.5 % (0-5); HEMATOCRIT 32.3 % (38.0-50.0); HEMOGLOBIN 10.5 G/DL (12.5-16.6); IMMATURE GRANULOCYTE (%) 1.4 % (0.0-0.7); LYMPHOCYTE (%) 26.6 % (15-42); LYMPHOCYTE COUNT 1.5 K/uL (1.0-2.8); MCH 29.7 PG (29.0-34.0); MCHC 32.5 G/DL (30.0-36.0); MCV 91.2 FL (86-99); MONOCYTE (%) 10.4 % (3-12); MONOCYTE COUNT 0.6 K/uL (0-0.8); NEUTROPHIL (%) 61.1 % (45-76); NEUTROPHIL COUNT 3.5 K/uL (1.8-6.4); PLATELET COUNT 115 K/uL (156-360); RBC DIS.WIDTH-CV 12.8 % (11.8-14.6); RBC DIS.WIDTH-SD 42.2 % (39-53); RED BLOOD COUNT 3.54 M/uL (4.00-5.50); WHITE BLOOD COUNT 5.7 K/uL (4.1-10.2)
[2017-05-03 07:30] VITALS: BP 147/71
[2017-05-03 07:32] LABS: ALKALINE PHOSPHATASE 44 IU/L (3-129); ALT (GPT) 13 IU/L (3-49); AST (GOT) 11 IU/L (2-34); CHLORIDE 106 MEQ/L (99-109); GFR ESTIMATE (CALCULATED) > 59 mL/min/ (58.99-99999); GLUCOSE 203 mg/dL (70-99); POTASSIUM 4.2 MEQ/L (3.7-5.4); SODIUM 141 MEQ/L (136-147); TOTAL PROTEIN 5.2 G/DL (6.4-8.3); UREA NITROGEN (BUN) 23 mg/dL (9-23)
[2017-05-03 07:39] LABS: TOTAL BILIRUBIN 0.3 MG/DL (0.0-1.0)
[2017-05-03 16:22] VITALS: BP 137/61
[2017-05-03 23:39] VITALS: BP 154/83
[2017-05-04 07:19] VITALS: BP 193/82
[2017-05-04 08:05] VITALS: BP 158/72
[2017-05-04 14:57] VITALS: BP 147/70
[2017-05-05 00:02] VITALS: BP 136/63
[2017-05-05 06:19] LABS: BASOPHIL (%) 0.1 % (0-1); EOSINOPHIL COUNT 0.3 K/uL (0-0.3); HEMOGLOBIN 10.3 G/DL (12.5-16.6); LYMPHOCYTE COUNT 1.8 K/uL (1.0-2.8); MCH 30.5 PG (29.0-34.0); MCHC 33.2 G/DL (30.0-36.0); MCV 91.7 FL (86-99); MONOCYTE (%) 7.5 % (3-12); MONOCYTE COUNT 0.5 K/uL (0-0.8); NEUTROPHIL (%) 62.4 % (45-76); NEUTROPHIL COUNT 4.5 K/uL (1.8-6.4); PLATELET COUNT 126 K/uL (156-360); RBC DIS.WIDTH-SD 42.9 % (39-53); RED BLOOD COUNT 3.38 M/uL (4.00-5.50); WHITE BLOOD COUNT 7.2 K/uL (4.1-10.2)
[2017-05-05 06:57] LABS: ALBUMIN 2.9 G/DL (3.2-4.8); ALKALINE PHOSPHATASE 43 IU/L (3-129); ALT (GPT) 13 IU/L (3-49); AST (GOT) 9 IU/L (2-34); CHLORIDE 106 MEQ/L (99-109); GFR ESTIMATE (CALCULATED) > 59 mL/min/ (58.99-99999); GLUCOSE 144 mg/dL (70-99); POTASSIUM 4.2 MEQ/L (3.7-5.4); SODIUM 142 MEQ/L (136-147); TOTAL PROTEIN 4.9 G/DL (6.4-8.3); UREA NITROGEN (BUN) 18 mg/dL (9-23)
[2017-05-05 06:58] LABS: TOTAL BILIRUBIN 0.4 MG/DL (0.0-1.0)
[2017-05-05 07:36] VITALS: BP 144/68
[2017-05-05 15:30] VITALS: BP 175/74
[2017-05-05 23:58] VITALS: BP 145/67
[2017-05-06 06:26] LABS: BASOPHIL (%) 0.2 % (0-1); EOSINOPHIL (%) 3.8 % (0-5); EOSINOPHIL COUNT 0.3 K/uL (0-0.3); HEMATOCRIT 31.2 % (38.0-50.0); HEMOGLOBIN 10.5 G/DL (12.5-16.6); IMMATURE GRANULOCYTE (%) 0.9 % (0.0-0.7); LYMPHOCYTE (%) 26.2 % (15-42); LYMPHOCYTE COUNT 1.7 K/uL (1.0-2.8); MCH 30.9 PG (29.0-34.0); MCHC 33.7 G/DL (30.0-36.0); MCV 91.8 FL (86-99); MONOCYTE COUNT 0.6 K/uL (0-0.8); NEUTROPHIL (%) 59.9 % (45-76); PLATELET COUNT 125 K/uL (156-360); RBC DIS.WIDTH-CV 13.2 % (11.8-14.6); RBC DIS.WIDTH-SD 43.9 % (39-53); WHITE BLOOD COUNT 6.7 K/uL (4.1-10.2)
[2017-05-06 06:39] LABS: CHLORIDE 107 MEQ/L (99-109); CREATININE 0.9 MG/DL (0.6-1.3); GFR ESTIMATE (CALCULATED) > 59 mL/min/ (58.99-99999); GLUCOSE 112 mg/dL (70-99); POTASSIUM 4.1 MEQ/L (3.7-5.4); SODIUM 142 MEQ/L (136-147); UREA NITROGEN (BUN) 15 mg/dL (9-23)
[2017-05-06 07:21] VITALS: BP 159/71
[2017-05-06 16:13] VITALS: BP 146/80
[2017-05-07 00:07] VITALS: BP 138/60
[2017-05-07 07:47] VITALS: BP 136/61
[2017-05-07] MEDS ORDERED: Chronulac,Cephulac,E PO (09:02)
[2017-05-07] MEDS ORDERED: DUONEB 2.5-0.5 M3 ML AEROSOL (09:12)
[2017-05-07 15:09] VITALS: BP 127/60
[2017-05-07 23:58] VITALS: BP 133/65
[2017-05-08 06:30] VITALS: BP 136/86
[2017-05-08 06:39] LABS: HEMATOCRIT 32.8 % (38.0-50.0); HEMOGLOBIN 10.8 G/DL (12.5-16.6); MCH 29.7 PG (29.0-34.0); MCHC 32.9 G/DL (30.0-36.0); MCV 90.1 FL (86-99); PLATELET COUNT 134 K/uL (156-360); RBC DIS.WIDTH-CV 13.1 % (11.8-14.6); RBC DIS.WIDTH-SD 42.9 % (39-53); RED BLOOD COUNT 3.64 M/uL (4.00-5.50); WHITE BLOOD COUNT 14.3 K/uL (4.1-10.2)
[2017-05-08 17:28] VITALS: BP 110/60
[2017-05-08 23:23] VITALS: BP 120/55
[2017-05-09 03:38] LABS: APPEARANCE CLEAR ((CLEAR)); BILIRUBIN NEGATIVE; BLOOD NEGATIVE; COLOR YELLOW ((YELLOW)); GLUCOSE (STRIP) NEGATIVE; KETONES NEGATIVE; LEUKOCYTES NEGATIVE; NITRITE NEGATIVE; PROTEIN (STRIP) NEGATIVE; SPECIFIC GRAVITY 1.015 (1.000-1.030); UCUL ADDED? NO
[2017-05-09 06:28] LABS: HEMATOCRIT 31.9 % (38.0-50.0); HEMOGLOBIN 10.4 G/DL (12.5-16.6); MCH 29.9 PG (29.0-34.0); MCHC 32.6 G/DL (30.0-36.0); MCV 91.7 FL (86-99); PLATELET COUNT 130 K/uL (156-360); RBC DIS.WIDTH-CV 13.2 % (11.8-14.6); RED BLOOD COUNT 3.48 M/uL (4.00-5.50); WHITE BLOOD COUNT 9.4 K/uL (4.1-10.2)
[2017-05-09 07:59] VITALS: BP 128/68
[2017-05-09] MEDS ORDERED: HALDOL2 MG PO (16:20)
== END 2017-05-09 17:35 | DRG 871 ==
LOC: EME 15:51 → EDOF 19:29 → 5SOUTH 19:29 → ENRESERV 19:31 → 5SOUTH 21:13
PROVIDERS: Emergency Medicine; Hospitalist; Physician Assistant Medical
DX: A41.9 Sepsis, unspecified organism (principal); R65.20 Severe sepsis without septic shock; J44.0 Chronic obstructive pulmonary disease with (acute) lower respiratory infection; J18.9 Pneumonia, unspecified organism; Y95 Nosocomial condition; N17.9 Acute kidney failure, unspecified; G93.41 Metabolic encephalopathy; J96.01 Acute respiratory failure with hypoxia; J44.1 Chronic obstructive pulmonary disease with (acute) exacerbation; E86.0 Dehydration; K21.9 Gastro-esophageal reflux disease without esophagitis; I10 Essential (primary) hypertension; E78.5 Hyperlipidemia, unspecified; F31.9 Bipolar disorder, unspecified; G89.29 Other chronic pain; M54.9 Dorsalgia, unspecified; E11.42 Type 2 diabetes mellitus with diabetic polyneuropathy; I25.10 Atherosclerotic heart disease of native coronary artery without angina pectoris; I48.0 Paroxysmal atrial fibrillation; M10.9 Gout, unspecified; N40.0 Benign prostatic hyperplasia without lower urinary tract symptoms; D69.6 Thrombocytopenia, unspecified; D64.9 Anemia, unspecified; F05 Delirium due to known physiological condition; R13.10 Dysphagia, unspecified; Z79.82 Long term (current) use of aspirin; I25.2 Old myocardial infarction; Z91.041 Radiographic dye allergy status; Z87.891 Personal history of nicotine dependence; Z86.73 Personal history of transient ischemic attack (TIA), and cerebral infarction without residual deficits
CPT/HCPCS: 36600; 70450; 71045; 71046; 71250; 72141; 72146; 72148; 74176; 80048; 80053; 80061; 81003; 82140; 82550; 82803; 82948; 83036; 83605; 84484; 85025; 85027; 87040; 87086; 87493; 92523 GN; 92526 GN; 92610 GN; 93005; 94799; 95819; 97530 GO; 97530 GP; 99202; 99281; 99285; J0456; J0692; J1630; J1815; J2405; J2543; J2920; J2930; J3370; J7030; J7050; J7120; J7512

== ENCOUNTER 2017-06-23 09:51 | Inpatient (IN) | payer OTHER ==
[~2017-06-23] VITALS: Ht 180.3 cm; Wt 88.0 kg
[~2017-06-23 09:51] MED LIST changes: +AMARYL2 MG PO; +CENTRUM SILVER1 EAC5 PO; +Chronulac,Cephulac,E PO; -GLIMEPIRIDE4 MG PO; +HALDOL2 MG PO; +NEURONTIN600 MG PO; +OXYCODONE HCL5 MG PO; +OXYCONTIN10 MG PO
[2017-06-23 10:16] LABS: INTER. NORMALIZED RATIO 1.3
[2017-06-23 10:19] LABS: PTT 42.1 SEC (25-37)
[2017-06-23 10:31] LABS: TROP-I INTERPRETATION NEGATIVE; TROPONIN-I 0.02 ng/mL (0.0-0.30)
[2017-06-23 10:44] LABS: AMYLASE 21 IU/L (1-118); LIPASE 17 U/L (1.0-51.0)
[2017-06-23 11:29] LABS: BASOPHIL (%) 0.4 % (0-1); EOSINOPHIL COUNT 0.2 K/uL (0-0.3); HEMATOCRIT 34.7 % (38.0-50.0); HEMOGLOBIN 11.3 G/DL (12.5-16.6); IMMATURE GRANULOCYTE (%) 0.2 % (0.0-0.7); MCHC 32.6 G/DL (30.0-36.0); MONOCYTE (%) 7.5 % (3-12); MONOCYTE COUNT 0.4 K/uL (0-0.8); NEUTROPHIL (%) 69.9 % (45-76); NEUTROPHIL COUNT 3.7 K/uL (1.8-6.4); PLATELET COUNT 117 K/uL (156-360); RBC DIS.WIDTH-CV 13.6 % (11.8-14.6); RBC DIS.WIDTH-SD 45.8 % (39-53); RED BLOOD COUNT 3.77 M/uL (4.00-5.50); WHITE BLOOD COUNT 5.3 K/uL (4.1-10.2)
[2017-06-23 11:43] LABS: CHLORIDE 104 MEQ/L (99-109); GFR ESTIMATE (CALCULATED) > 59 mL/min/ (58.99-99999); GLUCOSE 191 mg/dL (70-99); POTASSIUM 4.3 MEQ/L (3.7-5.4); SODIUM 138 MEQ/L (136-147); UREA NITROGEN (BUN) 16 mg/dL (9-23)
[2017-06-23] MEDS ORDERED: FERROUS SULFAT325 MG PO (12:59)
[2017-06-23] MEDS ORDERED: LACTULOSE10 GM/151 PO (13:00)
[2017-06-23] MEDS ORDERED: QUETIAPINE FUMA50 MG PO (13:11)
[2017-06-23] MEDS ORDERED: SENNA PLUS TAB1 EACH PO (13:12)
[2017-06-23 13:13] LABS: COCAINE NEGATIVE (150 ng/mL); METHAMPHETAMINE NEGATIVE (500 ng/mL); OPIATES (MORPHINE) NEGATIVE (100 ng/mL); PHENCYCLIDINE NEGATIVE (25 ng/mL); THC CANNABINOIDS NEGATIVE (50 ng/mL)
[2017-06-23 13:14] LABS: AMPHETAMINE NEGATIVE (500 ng/mL); BARBITURATES NEGATIVE (200 ng/mL); BENZODIAZEPINES NEGATIVE (150 ng/mL); BUPRENORPHINE NEGATIVE (10 ng/mL); METHADONE NEGATIVE (200 ng/mL); OXYCODONE PRESUMPTIVE POSITIVE (100 ng/mL); PROPOXYPHENE NEGATIVE (300 ng/mL); TRICYCLIC ANTIDEPRESSANTS PRESUMPTIVE POSITIVE (300 ng/mL)
[2017-06-23] MEDS ORDERED: TRADJENTA5 MG PO (13:15)
[2017-06-23] MEDS ORDERED: OMEPRAZOLE20 M2 PO (13:15)
[2017-06-23 16:47] VITALS: BP 180/77
[2017-06-23 17:38] LABS: HDL CHOLESTEROL 27 MG/DL (Desirable>=40); LDL CHOLESTEROL 40 mg/dL (Desirable<100); NON-HDL CHOLESTEROL 73 mg/dL (Desirable<160); TOTAL CHOLESTEROL 100 mg/dL (Desirable<200); TRIGLYCERIDES 165 MG/DL (Normal: <150)
[2017-06-23 23:47] VITALS: BP 134/62
[2017-06-24 03:55] VITALS: BP 159/72
[2017-06-24 07:34] VITALS: BP 138/70
[2017-06-24 09:30] LABS: HEMOGLOBIN A1c (GLYCOHEMOGLOB) 6.5 % (Below 5.7)
[2017-06-24 11:24] VITALS: BP 166/72
[2017-06-24 15:55] VITALS: BP 183/82
[2017-06-24 20:00] VITALS: BP 148/66
[2017-06-25 00:02] VITALS: BP 176/77
[2017-06-25 03:49] VITALS: BP 192/77
[2017-06-25 07:40] VITALS: BP 141/66
[2017-06-25 12:10] VITALS: BP 134/66
[2017-06-25 15:46] VITALS: BP 173/74
[2017-06-26] VITALS: BP 167/72
[2017-06-26 07:57] VITALS: BP 168/79
[2017-06-26 12:14] VITALS: BP 142/74
[2017-06-26 15:47] VITALS: BP 168/74
[2017-06-26 20:04] VITALS: BP 165/71
[2017-06-26 23:39] VITALS: BP 167/74
[2017-06-27 03:46] VITALS: BP 139/82
[2017-06-27 11:51] VITALS: BP 155/70
[2017-06-27 16:00] VITALS: BP 151/70
[2017-06-27] MEDS ORDERED: XARELTO20 MG PO (16:18)
[2017-06-27] MEDS ORDERED: MIRALAX17 GM PO (16:21)
== END 2017-06-27 18:10 | DRG 65 ==
LOC: EME → EDBD 09:51 → EDOF 14:19 → 5SOUTH 14:19 → ENRESERV 14:49 → 5SOUTH 16:38
PROVIDERS: Emergency Medicine; Internal Medicine
DX: I63.9 Cerebral infarction, unspecified (principal); I65.23 Occlusion and stenosis of bilateral carotid arteries; F01.50 Vascular dementia, unspecified severity, without behavioral disturbance, psychotic disturbance, mood disturbance, and anxiety; F31.9 Bipolar disorder, unspecified; I48.0 Paroxysmal atrial fibrillation; I25.10 Atherosclerotic heart disease of native coronary artery without angina pectoris; I69.319 Unspecified symptoms and signs involving cognitive functions following cerebral infarction; E11.9 Type 2 diabetes mellitus without complications; N40.0 Benign prostatic hyperplasia without lower urinary tract symptoms; E78.5 Hyperlipidemia, unspecified; I69.351 Hemiplegia and hemiparesis following cerebral infarction affecting right dominant side; Z95.1 Presence of aortocoronary bypass graft; G89.29 Other chronic pain; Z79.01 Long term (current) use of anticoagulants; Z79.82 Long term (current) use of aspirin; Z82.3 Family history of stroke; K21.9 Gastro-esophageal reflux disease without esophagitis; Z87.891 Personal history of nicotine dependence; I25.2 Old myocardial infarction; I11.9 Hypertensive heart disease without heart failure; J44.9 Chronic obstructive pulmonary disease, unspecified; Z87.442 Personal history of urinary calculi; I08.3 Combined rheumatic disorders of mitral, aortic and tricuspid valves
CPT/HCPCS: 70450; 70544; 70551; 71045; 80047; 80048; 80061; 82150; 82948; 83036; 83605; 83690; 84484; 85025; 85610; 85730; 92526 GN; 92610 GN; 93005; 93306; 93880; 97530 GO; 99202; 99281; 99285; J1650; J7030

== ENCOUNTER 2017-07-16 17:55 | Emergency (ER) | payer OTHER ==
[~2017-07-16] VITALS: Ht 167.6 cm; Wt 81.0 kg
[~2017-07-16 17:55] MED LIST changes: +FERROUS SULFAT325 MG PO; +LACTULOSE10 GM/151 PO; +OMEPRAZOLE20 M2 PO; +QUETIAPINE FUMA50 MG PO; +SENNA PLUS TAB1 EACH PO; +XARELTO20 MG PO
[2017-07-16 21:55] LABS: HEMATOCRIT 39.7 % (38.0-50.0); HEMOGLOBIN 13.3 G/DL (12.5-16.6); MCH 30.4 PG (29.0-34.0); MCHC 33.5 G/DL (30.0-36.0); MCV 90.8 FL (86-99); PLATELET COUNT 153 K/uL (156-360); RBC DIS.WIDTH-CV 13.1 % (11.8-14.6); RBC DIS.WIDTH-SD 43.4 % (39-53); RED BLOOD COUNT 4.37 M/uL (4.00-5.50)
[2017-07-16 22:09] LABS: CHLORIDE 101 mEq/L (99-109); POTASSIUM 4.8 mEq/L (3.7-5.4); SODIUM 138 mEq/L (136-147)
[2017-07-16 22:10] LABS: GLUCOSE 188 mg/dL (70-99)
[2017-07-16 22:14] LABS: CREATININE 1.1 mg/dL (0.6-1.3); GFR ESTIMATE (CALCULATED) > 59 mL/min/ (58.99-99999)
[2017-07-16 22:15] LABS: UREA NITROGEN (BUN) 17 mg/dL (9-23)
[2017-07-16 22:47] LABS: APPEARANCE SL.HAZY ((CLEAR)); BILIRUBIN NEGATIVE; BLOOD NEGATIVE; COLOR YELLOW ((YELLOW)); GLUCOSE (STRIP) NEGATIVE; KETONES NEGATIVE; LEUKOCYTES SMALL; NITRITE NEGATIVE; PROTEIN (STRIP) NEGATIVE; SPECIFIC GRAVITY 1.017 (1.000-1.030); UROBILINOGEN 0.2 MG/DL (0.2-1.0)
[2017-07-16 23:11] LABS: BACTERIA NONE SEEN /HPF; EPITHELIAL CELLS RARE /HPF; HYALINE CASTS 0-5 /LPF; MUCUS TRACE /LPF; RED BLOOD CELLS 0-5 /HPF (0-5); UCUL ADDED? YES
[2017-07-16] MEDS ORDERED: CIPRO500 MG PO (23:16)
[2017-07-17 00:09] VITALS: BP 129/62
== END 2017-07-17 00:10 ==
LOC: EME 17:55
PROVIDERS: Emergency Medicine
DX: N30.00 Acute cystitis without hematuria (principal); E11.9 Type 2 diabetes mellitus without complications; I10 Essential (primary) hypertension; J44.9 Chronic obstructive pulmonary disease, unspecified; E78.5 Hyperlipidemia, unspecified; K21.9 Gastro-esophageal reflux disease without esophagitis; I69.351 Hemiplegia and hemiparesis following cerebral infarction affecting right dominant side; I25.2 Old myocardial infarction; G89.29 Other chronic pain; M54.9 Dorsalgia, unspecified; F31.9 Bipolar disorder, unspecified; Z79.82 Long term (current) use of aspirin; Z79.891 Long term (current) use of opiate analgesic; Z79.84 Long term (current) use of oral hypoglycemic drugs; Z87.891 Personal history of nicotine dependence; Z87.442 Personal history of urinary calculi; Z90.49 Acquired absence of other specified parts of digestive tract; Z91.041 Radiographic dye allergy status; Z91.013 Allergy to seafood; Z88.8 Allergy status to other drugs, medicaments and biological substances
CPT/HCPCS: 70450; 80048; 81003; 85027; 87086; 99281; 99285

== ENCOUNTER 2017-07-21 15:06 | Inpatient (IN) | payer OTHER ==
[~2017-07-21] VITALS: Ht 180.3 cm; Wt 81.8 kg
[2017-07-21 17:23] LABS: HEMATOCRIT 39.1 % (38.0-50.0); HEMOGLOBIN 13.3 G/DL (12.5-16.6); MCH 30.6 PG (29.0-34.0); MCV 89.9 FL (86-99); PLATELET COUNT 124 K/uL (156-360); RBC DIS.WIDTH-CV 13.1 % (11.8-14.6); RBC DIS.WIDTH-SD 43.3 % (39-53); RED BLOOD COUNT 4.35 M/uL (4.00-5.50); WHITE BLOOD COUNT 6.2 K/uL (4.1-10.2)
[2017-07-21 17:39] LABS: CHLORIDE 102 mEq/L (99-109); POTASSIUM 4.5 mEq/L (3.7-5.4); SODIUM 139 mEq/L (136-147)
[2017-07-21 17:41] LABS: GLUCOSE 263 mg/dL (70-99); TOTAL PROTEIN 7.2 g/dL (6.4-8.3)
[2017-07-21 17:43] LABS: TOTAL BILIRUBIN 0.7 mg/dL (0.0-1.0)
[2017-07-21 17:45] LABS: ALKALINE PHOSPHATASE 80 IU/L (3-129); GFR ESTIMATE (CALCULATED) > 59 mL/min/ (58.99-99999)
[2017-07-21 17:46] LABS: UREA NITROGEN (BUN) 14 mg/dL (9-23)
[2017-07-21 17:47] LABS: AST (GOT) 17 IU/L (2-34)
[2017-07-21 17:48] LABS: APPEARANCE CLEAR ((CLEAR)); BILIRUBIN NEGATIVE; BLOOD NEGATIVE; COLOR STRAW ((YELLOW)); GLUCOSE (STRIP) 50; KETONES NEGATIVE; LEUKOCYTES NEGATIVE; NITRITE NEGATIVE; PROTEIN (STRIP) NEGATIVE; SPECIFIC GRAVITY 1.005 (1.000-1.030); UROBILINOGEN 0.2 MG/DL (0.2-1.0)
[2017-07-21 17:48] LABS: ALT (GPT) 14 IU/L (3-49)
[2017-07-21 21:00] VITALS: BP 192/81
[2017-07-21] MEDS ORDERED: CENTRUM SILVER1 EAC3 PO (22:04)
[2017-07-21] MEDS ORDERED: REMERON15 M2 PO (22:08)
[2017-07-21] MEDS ORDERED: TRADJENTA5 MG PO (22:14)
[2017-07-21] MEDS ORDERED: ATIVAN0.5 MG PO (22:21)
[2017-07-21] MEDS ORDERED: SENNA8.6 MG PO (22:26)
[2017-07-21 23:18] LABS: HDL CHOLESTEROL 39 MG/DL (Desirable>=40); LDL CHOLESTEROL 80 mg/dL (Desirable<100); NON-HDL CHOLESTEROL 125 mg/dL (Desirable<160); TOTAL CHOLESTEROL 164 mg/dL (Desirable<200); TRIGLYCERIDES 223 MG/DL (Normal: <150)
[2017-07-22 00:21] VITALS: BP 158/76
[2017-07-22] MEDS ORDERED: MIRALAX17 GM PO (00:25)
[2017-07-22] MEDS ORDERED: GABAPENTIN400 MG PO (00:32)
[2017-07-22 04:29] VITALS: BP 159/70
[2017-07-22 07:36] VITALS: BP 126/65
[2017-07-22 09:39] LABS: HEMOGLOBIN A1c (GLYCOHEMOGLOB) 7.5 % (Below 5.7)
[2017-07-22 23:39] VITALS: BP 192/86
[2017-07-23 00:40] VITALS: BP 162/88
[2017-07-24 00:20] VITALS: BP 109/54
[2017-07-24 16:19] LABS: BASOPHIL (%) 0.4 % (0-1); EOSINOPHIL (%) 2.9 % (0-5); EOSINOPHIL COUNT 0.1 K/uL (0-0.3); HEMATOCRIT 36.5 % (38.0-50.0); HEMOGLOBIN 12.4 G/DL (12.5-16.6); IMMATURE GRANULOCYTE (%) 0.4 % (0.0-0.7); LYMPHOCYTE (%) 27.3 % (15-42); LYMPHOCYTE COUNT 1.3 K/uL (1.0-2.8); MCH 29.6 PG (29.0-34.0); MCV 87.1 FL (86-99); MONOCYTE COUNT 0.4 K/uL (0-0.8); NEUTROPHIL COUNT 2.9 K/uL (1.8-6.4); PLATELET COUNT 118 K/uL (156-360); RBC DIS.WIDTH-CV 13.2 % (11.8-14.6); RBC DIS.WIDTH-SD 41.8 % (39-53); RED BLOOD COUNT 4.19 M/uL (4.00-5.50); WHITE BLOOD COUNT 4.8 K/uL (4.1-10.2)
[2017-07-24 16:43] LABS: CHLORIDE 108 MEQ/L (99-109); CREATININE 0.7 MG/DL (0.6-1.3); GFR ESTIMATE (CALCULATED) > 59 mL/min/ (58.99-99999); GLUCOSE 217 mg/dL (70-99); POTASSIUM 3.7 MEQ/L (3.7-5.4); SODIUM 141 MEQ/L (136-147); UREA NITROGEN (BUN) 5 mg/dL (9-23)
[2017-07-24 16:45] VITALS: BP 186/87
[2017-07-24 23:58] VITALS: BP 149/68
[2017-07-25 21:40] VITALS: BP 124/89
[2017-07-26] MEDS ORDERED: ATIVAN INTE2 MG/1 ML PO (16:00)
[2017-07-26] MEDS ORDERED: MORPHINE CON20 MG/M1 PO (16:02)
== END 2017-07-26 19:14 | DRG 57 ==
LOC: EME 15:06 → EDOF 19:50 → 5SOUTH 19:50 → ENRESERV 19:55 → 5SOUTH 20:42
PROVIDERS: Internal Medicine; Nurse Practitioner Family
DX: I69.319 Unspecified symptoms and signs involving cognitive functions following cerebral infarction (principal); F01.51 Vascular dementia, unspecified severity, with behavioral disturbance; Z51.5 Encounter for palliative care; I69.351 Hemiplegia and hemiparesis following cerebral infarction affecting right dominant side; I65.29 Occlusion and stenosis of unspecified carotid artery; I25.10 Atherosclerotic heart disease of native coronary artery without angina pectoris; I48.0 Paroxysmal atrial fibrillation; E11.9 Type 2 diabetes mellitus without complications; E78.5 Hyperlipidemia, unspecified; I10 Essential (primary) hypertension; I25.2 Old myocardial infarction; J44.9 Chronic obstructive pulmonary disease, unspecified; K21.9 Gastro-esophageal reflux disease without esophagitis; N40.0 Benign prostatic hyperplasia without lower urinary tract symptoms; F31.9 Bipolar disorder, unspecified; G89.29 Other chronic pain; M54.9 Dorsalgia, unspecified; Z66 Do not resuscitate; Z87.891 Personal history of nicotine dependence
CPT/HCPCS: 70450; 71045; 80048; 80053; 80061; 81003; 82948; 83036; 83605; 85025; 85027; 87040; 87086; 92526 GN; 92610 GN; 99281; 99285; J1630; J1644; J1815; J2060; J7030